=== PATIENT | female | born 1970 | race African-American/Black ===

== ENCOUNTER 2020-10-08 09:43 | Inpatient (IN) ==
[2020-10-08] MEDS ORDERED: SODIUM CHLORIDE 0.9% 1,000 ML IV STA (10:17)
[2020-10-08] MEDS ORDERED: ONDANSETRON 4 MG/2 ML VIAL IV STA (10:18)
[2020-10-08] MEDS ORDERED: HYDROmorphone 2 MG/1 ML VIAL IV STA (10:18)
[2020-10-08 10:57] LABS: Basophils % 0.1 % (0.0-0.8); Hematocrit 44.7 VOL% (35.7-47.0); Immature Granulocytes % 0.9 %; Immature Granulocytes Absolute 0.19 #; Lymphocytes # 0.9 10*3/uL (1.4-4.0); Lymphocytes % 4.6 % (21.3-54.2); Mean Corpuscular HGB Conc 33.6 GM/DL (32-36); Mean Corpuscular Volume 96.3 FL (87-102); Mean Platelet Volume 9.6 FL (9.6-12.0); Monocytes % 5.5 % (1.7-12.7); Neutrophils % 88.9 % (38.7-73.9); Platelet Count 206 T/CUMM (130-400); Red Blood Count 4.64 MC/CUMM (3.8-5.5); Red Cell Distribution Width 12.7 % (9.3-17.3); White Blood Count 20.1 T/CUMM (4-12)
[2020-10-08 11:15] LABS: Osmolality,Calculated 267.2 MOS/KG (273-304); Potassium 3.2 MMOL/L (3.5-5.1)
[2020-10-08 11:28] LABS: Hypochromasia 1+; Lymphocytes 7 % (20-55); Microcytosis 1+; Platelet Estimate Normal; Segmented Neutrophils 87 % (50-85); Total Cells Counted 100
[2020-10-08 12:04] LABS: Bacteria,Urine Occasional /HPF (Few); Bilirubin,Urine Negative (Negative); Blood, Urine Small mg/dL (Negative); Glucose,Urine (UA) Negative (Negative); Ketones,Urine Negative (Negative); Mucus,Urine Occasional /LPF (Occasional); Nitrite,Urine Negative (Negative); Protein,Urine Negative; RBC,Urine <1 /HPF (0-4); Squamous Epithelial Cell,Urine Occasional /HPF (0-10); Urine Appearance CLEAR (Clear); Urine Color Yellow (Yellow); Urine Specific Gravity 1.011 (1.001-1.035)
[2020-10-08] MEDS ORDERED: cefTRIAXone 1,000 MG in SODIUM CHLORIDE 0.9% 100 ML IV STA (12:30)
[2020-10-08 13:08] LABS: Barbiturates Screen,Urine Negative (Negative); Benzodiazepines Screen,Urine Negative (Negative); Cannabinoid Screen,Urine Positive (Negative); Opiate Screen,Urine Positive (Negative); Phencyclidine Screen,Urine Negative (Negative)
[2020-10-08] MEDS ORDERED: NICOTINE 21 MG/24 HR PATCH TRANSDERM PRN (13:21)
[2020-10-08] MEDS ORDERED: DEXTROSE 50% 25 GM/50 ML VIAL IV PRN (13:21)
[2020-10-08] MEDS ORDERED: GLUCAGON 1 MG VIAL IM PRN (13:21)
[2020-10-08] MEDS ORDERED: cefTRIAXone 1,000 MG in SODIUM CHLORIDE 0.9% 100 ML IV SCH (13:30)
[2020-10-08] MEDS ORDERED: POTASSIUM CHLORIDE 20 MEQ TABLET PO ONE (13:32)
[2020-10-08] MEDS ORDERED: SODIUM CHLORIDE 0.9% 1,300 ML IV ONE (13:32)
[2020-10-08] MEDS: HEPARIN 5,000 UNIT/1 ML VIAL SUBCUT SCH ×2 (14:10→22:10)
[2020-10-08] MEDS ORDERED: POTASSIUM BICARB EFFERVESCENT 20 MEQ TAB.EFF PO ONE (14:11)
[2020-10-08] MEDS ORDERED: POTASSIUM BICARB EFFERVESCENT 25 MEQ TAB.EFF PO ONE (14:13)
[2020-10-08] MEDS: AZITHROMYCIN INJ 500 MG in SODIUM CHLORIDE 0.9% 250 ML IV SCH (14:42)
[2020-10-08] MEDS: SODIUM CHLORIDE 0.9% 1,000 ML IV SCH (14:42)
[2020-10-08] MEDS: chlordiazePOXIDE 25 MG CAPSULE PO SCH ×2 (16:39→22:09)
[2020-10-08] MEDS: ALBUTEROL/IPRATROPIUM 3 ML NEB RESP TX SCH (20:29)
[2020-10-08] MEDS ORDERED: ACETAMINOPHEN 325 MG TABLET PO PRN (20:52)
[2020-10-09] MEDS: ALBUTEROL/IPRATROPIUM 3 ML NEB RESP TX SCH ×4 (00:30→19:33)
[2020-10-09] MEDS: SODIUM CHLORIDE 0.9% 1,000 ML IV SCH ×2 (01:20→09:55)
[2020-10-09 06:09] LABS: Basophils % 0.4 % (0.0-0.8); Eosinophils # 0.1 10*3/uL (0.0-0.87); Eosinophils % 1.1 % (0.00-10.9); Hematocrit 38.8 VOL% (35.7-47.0); Hemoglobin 12.7 GM/DL (12.0-16.0); Immature Granulocytes % 0.6 %; Immature Granulocytes Absolute 0.06 #; Lymphocytes # 2.1 10*3/uL (1.4-4.0); Lymphocytes % 20.1 % (21.3-54.2); Mean Corpuscular HGB Conc 32.7 GM/DL (32-36); Mean Corpuscular Volume 99.2 FL (87-102); Mean Platelet Volume 10.6 FL (9.6-12.0); Monocytes % 6.6 % (1.7-12.7); Neutrophils % 71.2 % (38.7-73.9); Platelet Count 176 T/CUMM (130-400); Red Blood Count 3.91 MC/CUMM (3.8-5.5); Red Cell Distribution Width 12.8 % (9.3-17.3); White Blood Count 10.6 T/CUMM (4-12)
[2020-10-09] MEDS: chlordiazePOXIDE 25 MG CAPSULE PO SCH ×3 (06:18→21:42)
[2020-10-09] MEDS: HEPARIN 5,000 UNIT/1 ML VIAL SUBCUT SCH ×3 (06:19→20:46)
[2020-10-09 06:32] LABS: Calcium 8.1 MG/DL (8.5-10.1); Osmolality,Calculated 281.1 MOS/KG (273-304); Potassium 3.3 MMOL/L (3.5-5.1); Thyroid Stimulating Hormone 0.832 uIU/ml (0.358-3.74)
[2020-10-09] MEDS ORDERED: POTASSIUM CHLORIDE 20 MEQ TABLET PO PRN (08:53)
[2020-10-09] MEDS: MULTIVITAMIN (CENTRUM) TABLET PO SCH (09:53)
[2020-10-09] MEDS: FOLIC ACID 1 MG TABLET PO SCH (09:54)
[2020-10-09] MEDS: PANTOPRAZOLE 40 MG TABLET PO SCH (09:54)
[2020-10-09] MEDS: THIAMINE 100 MG TABLET PO SCH (09:54)
[2020-10-09] MEDS ORDERED: ALBUTEROL 2.5 MG/3 ML NEB RESP TX PRN (11:41)
[2020-10-09] MEDS ORDERED: guaiFENesin/DM ER 600-30 MG TABLET PO PRN (11:42)
[2020-10-09] MEDS: CLINDAMYCIN INJ 600 MG/50 ML PREMIX IV SCH ×2 (13:29→20:16)
[2020-10-09] MEDS: cefTRIAXone 1,000 MG in SODIUM CHLORIDE 0.9% 100 ML IV SCH (15:29)
[2020-10-09] MEDS: AZITHROMYCIN INJ 500 MG in SODIUM CHLORIDE 0.9% 250 ML IV SCH (15:31)
[2020-10-10] MEDS: ALBUTEROL/IPRATROPIUM 3 ML NEB RESP TX SCH ×2 (00:01→08:02)
[2020-10-10] MEDS: SODIUM CHLORIDE 0.9% 1,000 ML IV SCH ×2 (03:03→10:54)
[2020-10-10] MEDS: HEPARIN 5,000 UNIT/1 ML VIAL SUBCUT SCH ×2 (05:01→14:11)
[2020-10-10] MEDS: chlordiazePOXIDE 25 MG CAPSULE PO SCH ×2 (05:01→13:55)
[2020-10-10] MEDS: CLINDAMYCIN INJ 600 MG/50 ML PREMIX IV SCH ×2 (05:02→12:19)
[2020-10-10 06:43] LABS: Calcium 8.2 MG/DL (8.5-10.1); Osmolality,Calculated 282.1 MOS/KG (273-304); Potassium 3.2 MMOL/L (3.5-5.1)
[2020-10-10] MEDS ORDERED: MAGNESIUM SULF RIDER 2 GM/50 ML PREMIX IV PRN (06:57)
[2020-10-10] MEDS ORDERED: MAGNESIUM SULF RIDER 4 GM/100 ML PREMIX IV PRN (06:57)
[2020-10-10] MEDS ORDERED: amLODIPine 5 MG TABLET PO SCH (09:00)
[2020-10-10] MEDS: PANTOPRAZOLE 40 MG TABLET PO SCH (09:42)
[2020-10-10] MEDS: MULTIVITAMIN (CENTRUM) TABLET PO SCH (09:42)
[2020-10-10] MEDS: FOLIC ACID 1 MG TABLET PO SCH (09:42)
[2020-10-10] MEDS: THIAMINE 100 MG TABLET PO SCH (10:03)
[2020-10-10] MEDS: POTASSIUM CHLORIDE 20 MEQ/15 ML UDCUP PER TUBE PRN ×6 (10:15→15:25)
[2020-10-10 12:07] VITALS: BP 148/96
[2020-10-10] MEDS: cefTRIAXone 1,000 MG in SODIUM CHLORIDE 0.9% 100 ML IV SCH (12:19)
== END 2020-10-10 15:30 | disposition home or self-care (01) | DRG 178 ==
LOC: N.ED 09:43 → SUATTDRO 13:32 → N.EDINP 13:32 → N.5E 15:29
PROVIDERS: ADMIT Internal Medicine; ATTEND Internal Medicine